=== PATIENT | male | born 1950 ===

== ENCOUNTER 2022-09-06 06:29 | Day surgery (SDC) | payer OTHER ==
[~2022-09-06] VITALS: Ht 167.6 cm; Wt 80.7 kg
[~2022-09-06 06:29] MED LIST: DOXAZOSIN MESYLA2 MG PO; LIPITOR20 MG PO; LOTREL 5-20 MG1 CAP PO; OMEPRAZOLE20 M2 PO
== END 2022-09-06 11:25 | disposition home or self-care (01) ==
LOC: CIR.AMB 06:29
PROVIDERS: ATTEND Colon & Rectal Surgery
DX: K64.4 Residual hemorrhoidal skin tags (principal); K64.8 Other hemorrhoids; Z20.822 Contact with and (suspected) exposure to COVID-19; I10 Essential (primary) hypertension; E78.49 Other hyperlipidemia; Z88.2 Allergy status to sulfonamides